=== PATIENT | male | born 1945 | race Caucasian/White ===

== ENCOUNTER 2019-01-09 13:12 | Emergency (ER) | payer OTHER, MEDICARE ==
[2019-01-09 14:00] VITALS: BP 114/46; PULSE 77; TEMP 98.1; BMI 21.9
--- NOTE | 2019-01-09 15:25 | PDOC ---
History of Present Illness - General Chief Complaint: Weakness Stated Complaint: DIZZINESS Time Seen by Provider: 01/09/19 15:24 History Source: Patient Exam Limitations: No Limitations - History of Present Illness Initial Comments: 01/09/19 16:02 74 yo M with a hx of HTN, dementia, TIAs, prostate cancer (2008; s/p radiation) , and GERD presents to the emergency department with AMS per . Per the , he was agitated and more confused last night, refusing to take his medications and acting paranoid. These symptoms persisted today, but have been resolving. Denies head trauma and LOC. Per the patient, he denies the following symptoms: fever, chills, FND, visual changes, ears/nose/throat pain, chest pain , SOB, nausea, vomiting, acute abdominal pain, dysuria, hematuria, diarrhea, hematochezia, and leg pain/swelling. No recent sick contacts. Per the , he was more forgetful and confused to his location. He was seen by Dr. Sneed today who sent him to the ED for evaluation for infectious source. 01/09/19 16:09 01/09/19 16:18 Past History - Past Medical History Allergies/Adverse Reactions: Allergies Allergy/AdvReac Type Severity Reaction Status Date / Time No Known Allergies Allergy Verified 01/09/19 13:56 Home Medications: Ambulatory Orders Amlodipine Besylate 10 mg PO DAILY 01/09/19 Cephalexin Monohydrate [Keflex -] 500 mg PO Q6H #40 capsule 01/09/19 Divalproex *ER* [Depakote *ER* -] 250 mg PO BID 01/09/19 Escitalopram Oxalate [Lexapro -] 10 mg PO DAILY 01/09/19 Gabapentin [Neurontin] 100 mg PO BID 01/09/19 Gabapentin [Neurontin] 200 mg PO HS 01/09/19 Memantine HCl [Namenda -] 5 mg PO HS 01/09/19 Pantoprazole Sodium [Protonix] 40 mg PO DAILY 01/09/19 Sennosides [Senna] 8.6 mg PO BID 01/09/19 Thiamine HCl [Vitamin B1] 100 mg PO DAILY 01/09/19 traZODone HCL [Trazodone HCl] 50 mg PO HS 01/09/19 COPD: No Dementia: Yes HTN: Yes - Suicide/Smoking/Psychosocial Hx Smoking History: Never smoked Hx Alcohol Use: Yes (stopped 3 years ago) Drug/Substance Use Hx: No *Physical Exam - Vital Signs Last Vital Signs Temp Pulse Resp BP Pulse Ox 98.1 F 77 18 114/46 L 99 01/09/19 13:57 01/09/19 13:57 01/09/19 13:57 01/09/19 13:57 01/09/19 13:57 Moderate Sedation - Procedure Monitoring Vital Signs: Procedure Monitoring Vital Signs Temperature 98.1 F 01/09/19 13:57 Pulse Rate 77 01/09/19 13:57 Respiratory Rate 18 01/09/19 13:57 Blood Pressure 114/46 L 01/09/19 13:57 O2 Sat by Pulse Oximetry (%) 99 01/09/19 13:57 ED Treatment Course - LABORATORY CBC & Chemistry Diagram: 01/09/19 17:19 01/09/19 17:19 *DC/Admit/Observation/Transfer Diagnosis at time of Disposition: UTI (urinary tract infection) Qualifiers: Urinary tract infection type: site unspecified Hematuria presence: without hematuria Qualified Code(s): N39.0 - Urinary tract infection, site not specified - Discharge Dispostion Disposition: HOME Decision to Admit order: No - Prescriptions Prescriptions: Cephalexin Monohydrate [Keflex -] 500 mg PO Q6H #40 capsule - Referrals Referrals: Jarod Jimenez MD [Primary Care Provider] - Tamiko Sneed MD [Staff Physician] - - Patient Instructions Printed Discharge Instructions: Urinary Tract Infection Additional Instructions: you were seen in the emergency department for the evaluation of your urinary symptoms. UA shows that you have a UTI. please follow up with your primary medical doctor within 1 week after discharge for follow up care and management and please follow up with dr. sneed within 1 week for follow up care and management. please take the medication as prescribed. please return to the emergency department if you have worsening symptoms or new concerning symptoms such as fever, worsening altered mental status, SOB, and blood in the urine. thank you - Post Discharge Activity
--- NOTE | 2019-01-09 16:58 | PDOC ---
Attending Attestation - Medical Decision Making 01/09/19 16:[address] Sneed, awaiting call back. 01/09/19 16:[address] Sneed, awaiting call back. 01/09/19 17:[address] Sneed. <Lisy Cali - Last Filed: 01/09/19 17:00> - Resident Resident Name: Paul Black - ED Attending Attestation I have performed the following: I have examined & evaluated the patient, The case was reviewed & discussed with the resident, I agree w/resident's findings & plan, Exceptions are as noted - HPI HPI: 01/09/19 17:06 The patient is a 74 year old male, with a significant past medical history of HTN, frontotemporal dementia, TIAs, prostate cancer (2008; s/p radiation), and GERD, who presents to the emergency department for evaluation of altered mental status since last night. The patients states that the patient has seemed more confused and refuses to take his medications. Patient denies all symptoms. Patient was advised to come to the emergency department today by his neurologist Dr. Sneed who he saw earlier today. The patient denies chest pain, shortness of breath, headache and dizziness. Denies fever, chills, nausea, vomit, diarrhea and constipation. Denies dysuria, frequency, urgency and hematuria. Allergies: NKA Social history: None reported PCP: Dr. Jimenez Neurologist: Dr. Sneed - Physicial Exam PE: 01/09/19 17:07 agree with resident exam - Medical Decision Making 01/09/19 16:07 74yo M with MMP presents to the ED for evaluation after episode of confusion last night. Per pt's , pt is now back to baseline. Pt denies all sxs. Per Dr. Sneed, he wanted to r/o UTI or other infection as cause of temporary increased confusion last night. Plan to check labs, UA, and reassess. If w/u unrevealing, plan to broaden work up to possible CTH, further testing. 01/09/19 17:00 Labs, UA, CXR pending Case signed out to oncoming attending for further mgmt/dispo <Vicky Valencia - Last Filed: 01/09/19 21:16> Heart Score/ECG Review #1 01/09/19 17:09 Twelve-lead EKG was performed and reviewed by me. Normal sinus rhythm, rate 66. Left axis deviation. No ST elevations or T-wave inversions. <Vicky Valencia - Last Filed: 01/09/19 21:16> Attestations - Attestations 01/09/19 17:00 Documentation prepared by Lisy Cali, acting as medical staff physician for Vicky Valencia MD. <Lisy Cali - Last Filed: 01/09/19 17:00>
[2019-01-09 17:34] LABS: BASO % 0.8 % (0-2.0); EOS % 0.6 % (0-4.5); HEMATOCRIT 40.4 % (35.4-49); HEMOGLOBIN 14.3 GM/dL (11.7-16.9); LYMPH % 19.9 % (8-40); MCH 31.7 pg (25.7-33.7); MCHC 35.3 g/dl (32.0-35.9); MEAN CELL VOLUME 89.8 fl (80-96); MEAN PLT VOLUME 9.4 fl (7.5-11.1); NEUT % 70.7 % (42.8-82.8); PLATELET COUNT 225 K/MM3 (134-434); RDW 14.4 % (11.9-15.9); WHITE BLOOD COUNT 7.6 K/mm3 (4.0-10.0)
[2019-01-09 17:36] LABS: URINE APPEARANCE CLEAR; URINE BILIRUBIN NEGATIVE (<2.0 mg/dL); URINE COLOR YELLOW; URINE GLUCOSE (UA) NEGATIVE (NEGATIVE); URINE KETONE 1+ (NEGATIVE); URINE LEUK ESTERASE 1+ (NEGATIVE); URINE NITRITE NEGATIVE (NEGATIVE); URINE PROTEIN NEGATIVE (NEGATIVE); URINE UROBILINOGEN NEGATIVE mg/dL (0.2-1.0)
[2019-01-09 17:43] LABS: COCAINE, UR NEGATIVE ng/ml (CUTOFF=300); METHADONE, UR NEGATIVE ng/ml (CUTOFF=300); OPIATES, URI NEGATIVE ng/ml (CUTOFF=300); PHENCYCLIDINE,URINE NEGATIVE ng/ml (CUTOFF=25); URINE AMPHETAMINES NEGATIVE ng/ml (CUTOFF=500); URINE BARBITURATES NEGATIVE ng/ml (CUTOFF=200); URINE BENZODIAZEPINES NEGATIVE ng/ml (CUTOFF=200)
[2019-01-09 18:16] LABS: ALBUMIN 3.5 g/dl (3.4-5.0); ALK PHOS 62 U/L (45-117); ANION GAP 7 MMOL/L (8-16); BILIRUBIN,TOTAL 0.7 mg/dL (0.2-1); BLOOD UREA NITROGEN 23 mg/dL (7-18); CALCIUM 9.2 mg/dL (8.5-10.1); CHLORIDE 103 mmol/L (98-107); CO2 27 mmol/L (21-32); GLUCOSE,RANDOM 76 mg/dL (74-106); POTASSIUM 4.2 mmol/L (3.5-5.1); SGOT/AST 45 U/L (15-37); SGPT/ALT 67 U/L (13-61); SODIUM 136 mmol/L (136-145); TOT PROT 7.3 g/dl (6.4-8.2)
[2019-01-09 18:21] LABS: EPI CELLS RARE /HPF (FEW); URINE MUCUS RARE
[2019-01-09] MEDS ORDERED: CEPHALEXIN MONOHYDRATE 500 MG CAPSULE (UD) ONE (19:04)
[2019-01-09] MEDS ORDERED: CEPHALEXIN MONOHYDRATE 500 MG CAPSULE (UD) PO ONE (19:04)
--- NOTE | 2019-01-10 11:07 | EKG ---
Test Reason : Blood Pressure : / mmHG Vent. Rate : 066 BPM Atrial Rate : 066 BPM P-R Int : 168 ms QRS Dur : 072 ms QT Int : 388 ms P-R-T Axes : 073 -35 058 degrees QTc Int : 406 ms POOR DATA QUALITY, INTERPRETATION MAY BE ADVERSELY AFFECTED NORMAL SINUS RHYTHM LEFT AXIS DEVIATION ABNORMAL ECG NO PREVIOUS ECGS AVAILABLE Confirmed by SOLEDAD WRIGHT, ANA ([id number]) on 01/10/2019 11:07:15 AM Referred By: Confirmed By:ANA ROWE MD
== END 2019-01-09 19:10 | disposition home or self-care (01) ==
LOC: JER 13:12
DX: N39.0 Urinary tract infection, site not specified (principal); I10 Essential (primary) hypertension; F03.90 Unspecified dementia, unspecified severity, without behavioral disturbance, psychotic disturbance, mood disturbance, and anxiety; K21.9 Gastro-esophageal reflux disease without esophagitis; Z86.73 Personal history of transient ischemic attack (TIA), and cerebral infarction without residual deficits; Z85.46 Personal history of malignant neoplasm of prostate
CPT/HCPCS: 36415; 71045-TC-FY; 71046-TC-FY; 80053; 80307; 81003; 81015; 82550; 84484; 85025; 87086; 87186; 93005; 93010; 99282-25

== ENCOUNTER 2019-01-17 13:37 | Inpatient (IN) | payer OTHER, MEDICARE ==
--- NOTE | 2019-01-17 13:43 | PDOC ---
Rapid Medical Evaluation Medical Evaluation: Allergies Allergy/AdvReac Type Severity Reaction Status Date / Time No Known Allergies Allergy Verified 01/09/19 13:56 I have performed a brief in-person evaluation of this patient. The patient presents with a chief complaint of: Per , patient has been getting aggressive and increasingly paranoid today; patient was recently seen last week and dx with UTI; per , was only able to give medication 3 times Pertinent physical exam findings: In NAD I have ordered the following: Labs The patient will proceed to the ED for further evaluation. 01/17/19 13:40
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
[2019-01-17 16:37] LABS: EPI CELLS 0.7 /HPF (FEW); PH,URINE 5.5 (5.0-8.0); URINE APPEARANCE CLEAR; URINE BACTERIA 2.016 /hpf (NEGATIVE); URINE BILIRUBIN NEGATIVE (<2.0 mg/dL); URINE CASTS 4 /hpf (NEGATIVE); URINE COLOR YELLOW; URINE GLUCOSE (UA) NEAGTIVE (NEGATIVE); URINE KETONE TRACE (NEGATIVE); URINE LEUK ESTERASE TRACE (NEGATIVE); URINE NITRITE NEGATIVE (NEGATIVE); URINE PROTEIN NEGATIVE (NEGATIVE); URINE RBC 3 /hpf (0-3); URINE UROBILINOGEN 0.2 mg/dL (0.2-1.0); URINE WBC 4 /hpf (3-5)
--- NOTE | 2019-01-17 16:49 | CON.PSY ---
Psychiatry Consult Chief Complaint: 74 year old Male brought to Er by for UTI and aggressive Behaviour. patient has been seeing DR.Kazmi Hilliard and Rivera Keene. Has Dementia with Behavioral [id number]. has been on [id number], Risperidal, Neurintin ETC. Symptoms: reports: Memory Impairment, Irritability, Aggressivity - Previous Psychiatric Treatment Outpatient: Less than 6 mos ago Inpatient: None - Allergies Allergies: Allergies Allergy/AdvReac Type Severity Reaction Status Date / Time No Known Allergies Allergy Verified 01/17/19 13:45 - Current Living Status Usual Living Arrangement: With Spouse - Current Mental Status Evaluation Appearance: Disheveled Attitude: Belligerent - Affect Affect: Constrictive Appropriateness: Not Appropriate - Mood Mood: Irritable - Speech/Language Expressive: Delayed - Psychomotor Activity Psychomotor Activity: Hyperactive - Thought Process Thought Process: Circumstantial - Thought Content Hallucinations: Absent Delusions: Absent - Self Perception Self Perception: Depersonalization - Cognition Attention: Diminished Memory, Immediate Recall: Impaired Memory, Short Term: 1/3 Memory, Remote with Promptin/3 - Concentration Serial Sevens Intact: No Simple Calculations Intact: No - Abstraction Proverb Interpretation: Impaired Judgement: Moderately Impaired - Insight Insight: Impaired - Impulse Control Impulse Control: Moderately Impaired - Suicidal Ideation Suicidal Ideation: No - Homicidal Ideation Homicidal Ideation: No Assessment/Plan 1) Suggest Zyprexa 5mg po bid for aggression.
[2019-01-17] MEDS ORDERED: OLANZapine 5 MG TABLET PO ONE (16:51)
[2019-01-17] MEDS ORDERED: OLANZapine 7.5 MG TABLET PO ONE ×2 (16:52→17:08)
[2019-01-17 17:02] LABS: COCAINE, UR NEGATIVE ng/ml (CUTOFF=300); METHADONE, UR NEGATIVE ng/ml (CUTOFF=300); OPIATES, URI NEGATIVE ng/ml (CUTOFF=300); PHENCYCLIDINE,URINE NEGATIVE ng/ml (CUTOFF=25); URINE AMPHETAMINES NEGATIVE ng/ml (CUTOFF=500); URINE BARBITURATES NEGATIVE ng/ml (CUTOFF=200); URINE BENZODIAZEPINES NEGATIVE ng/ml (CUTOFF=200)
[2019-01-17 17:34] LABS: BASO % 0.8 % (0-2.0); EOS % 2.2 % (0-4.5); HEMATOCRIT 39.5 % (35.4-49); LYMPH % 14.6 % (8-40); MCH 31.5 pg (25.7-33.7); MCHC 35.4 g/dl (32.0-35.9); MEAN CELL VOLUME 89.1 fl (80-96); MEAN PLT VOLUME 8.8 fl (7.5-11.1); MONO % 9.1 % (3.8-10.2); NEUT % 73.3 % (42.8-82.8); PLATELET COUNT 181 K/MM3 (134-434); RBC 4.44 M/mm3 (4.00-5.60); RDW 14.1 % (11.9-15.9); WHITE BLOOD COUNT 7.6 K/mm3 (4.0-10.0)
[2019-01-17 18:04] LABS: ALBUMIN 3.8 g/dl (3.4-5.0); ALK PHOS 63 U/L (45-117); ANION GAP 6 MMOL/L (8-16); BILIRUBIN,TOTAL 0.4 mg/dL (0.2-1); BLOOD UREA NITROGEN 25 mg/dL (7-18); CHLORIDE 103 mmol/L (98-107); CO2 28 mmol/L (21-32); GLUCOSE,RANDOM 78 mg/dL (74-106); POTASSIUM 4.2 mmol/L (3.5-5.1); SGOT/AST 35 U/L (15-37); SGPT/ALT 65 U/L (13-61); SODIUM 137 mmol/L (136-145); TOT PROT 7.2 g/dl (6.4-8.2)
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
[2019-01-17] MEDS ORDERED: AMOXICILLIN 875 MG TABLET PO SCH (22:00)
[2019-01-17] MEDS ORDERED: AMOX TR/POT CLAV 875MG/125MG TABLETS (FP) ONE (23:12)
[2019-01-17] MEDS: AMOX TR/POT CLAV 875MG/125MG TABLETS (FP) PO SCH (23:12)
[2019-01-18] MEDS ORDERED: HALOPERIDOL LACTATE 5 MG/ML IM ONE ×2 (05:48→05:54)
[2019-01-18] MEDS ORDERED: LORazepam 2 MG/ML SDV VIAL ONE (05:48)
[2019-01-18] MEDS ORDERED: HEPARIN NA (PORCINE) 5,000 UNITS/ML 1ML VIAL SQ SCH (06:00)
[2019-01-18] MEDS ORDERED: PT OWN MED DRAWER 7, Y5N ONE (08:55)
[2019-01-18] MEDS: DIVALPROEX NA *ER* EXTEND REL 250 MG TABLET.SA PO SCH ×2 (08:59→21:33)
[2019-01-18] MEDS: SENNOSIDES 8.6MG TABLET (FP) PO SCH ×2 (08:59→21:33)
[2019-01-18] MEDS: THIAMINE HCL 100 MG TABLET (FP) PO SCH (08:59)
[2019-01-18] MEDS: GABAPENTIN 100 MG CAPSULE (FP) PO SCH ×3 (08:59→21:34)
[2019-01-18] MEDS: PANTOPRAZOLE 40 MG TABLET (FP) PO SCH (08:59)
[2019-01-18] MEDS: ESCITALOPRAM OXALATE 10 MG TABLET (FP) PO SCH (08:59)
[2019-01-18] MEDS: AMOX TR/POT CLAV 875MG/125MG TABLETS (FP) PO SCH ×2 (08:59→18:05)
[2019-01-18] MEDS: amLODIPine BESYLATE 10 MG TABLET (FP) PO SCH (08:59)
[2019-01-18] MEDS: ENOXAPARIN NA (PORCINE) 40 MG/0.4 ML DISP.SYRIN SQ SCH (09:06)
--- NOTE | 2019-01-18 10:59 | EKG ---
Test Reason : Blood Pressure : / mmHG Vent. Rate : 063 BPM Atrial Rate : 063 BPM P-R Int : 178 ms QRS Dur : 080 ms QT Int : 400 ms P-R-T Axes : 071 -10 059 degrees QTc Int : 409 ms NORMAL SINUS RHYTHM NORMAL ECG WHEN COMPARED WITH ECG OF 09-JAN-2019 16:43, NO SIGNIFICANT CHANGE WAS FOUND Confirmed by DERRICK GUPTA MD ([id number]) on 01/18/2019 10:59:17 AM Referred By: Confirmed By:DERRICK GUPTA MD
[2019-01-18 12:22] LABS: HEMATOCRIT 39.4 % (35.4-49); HEMOGLOBIN 13.6 GM/dL (11.7-16.9); MCH 30.7 pg (25.7-33.7); MCHC 34.5 g/dl (32.0-35.9); MEAN CELL VOLUME 89.1 fl (80-96); MEAN PLT VOLUME 9.3 fl (7.5-11.1); PLATELET COUNT 167 K/MM3 (134-434); RBC 4.43 M/mm3 (4.00-5.60); RDW 14.2 % (11.9-15.9); WHITE BLOOD COUNT 5.1 K/mm3 (4.0-10.0)
[2019-01-18 13:55] LABS: ALBUMIN 3.6 g/dl (3.4-5.0); ALK PHOS 62 U/L (45-117); ANION GAP 7 MMOL/L (8-16); BILIRUBIN,TOTAL 0.4 mg/dL (0.2-1); BLOOD UREA NITROGEN 17 mg/dL (7-18); CHLORIDE 104 mmol/L (98-107); CO2 28 mmol/L (21-32); CREATININE 0.9 mg/dL (0.55-1.3); GLUCOSE,RANDOM 82 mg/dL (74-106); MAGNESIUM 2.2 mg/dL (1.8-2.4); PHOSPHOROUS 3.4 mg/dL (2.5-4.9); POTASSIUM 3.6 mmol/L (3.5-5.1); SGOT/AST 37 U/L (15-37); SGPT/ALT 68 U/L (13-61); SODIUM 140 mmol/L (136-145)
[2019-01-18 14:18] LABS: ERYTHROCYTE SEDIMENTATION RATE 7 mm/hr (0-20)
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
[2019-01-18 16:40] LABS: INR 1.08 (0.83-1.09); PROTHROMBIN TIME (PATIENT) 12.8 SEC (9.7-13.0)
[2019-01-18] MEDS: traZODone HCL 50 MG TABLET (FP) PO SCH (21:33)
[2019-01-18] MEDS ORDERED: OLANZapine 5 MG TABLET PO SCH (22:00)
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
[2019-01-19] MEDS ORDERED: PT OWN MED DRAWER 7, Y5N ONE (10:50)
[2019-01-19] MEDS: ESCITALOPRAM OXALATE 10 MG TABLET (FP) PO SCH (11:00)
[2019-01-19] MEDS: OLANZapine 5 MG TABLET PO SCH ×2 (11:00→23:24)
[2019-01-19] MEDS: amLODIPine BESYLATE 10 MG TABLET (FP) PO SCH (11:00)
[2019-01-19] MEDS: GABAPENTIN 100 MG CAPSULE (FP) PO SCH ×3 (11:00→23:18)
[2019-01-19] MEDS: SENNOSIDES 8.6MG TABLET (FP) PO SCH ×2 (11:00→23:18)
[2019-01-19] MEDS: AMOX TR/POT CLAV 875MG/125MG TABLETS (FP) PO SCH ×2 (11:00→17:54)
[2019-01-19] MEDS: ENOXAPARIN NA (PORCINE) 40 MG/0.4 ML DISP.SYRIN SQ SCH (11:00)
[2019-01-19] MEDS: PANTOPRAZOLE 40 MG TABLET (FP) PO SCH (11:00)
[2019-01-19] MEDS: THIAMINE HCL 100 MG TABLET (FP) PO SCH (11:00)
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
[2019-01-19] MEDS: DIVALPROEX NA *ER* EXTEND REL 250 MG TABLET.SA PO SCH ×2 (13:28→23:24)
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
[2019-01-19] MEDS ORDERED: MEMANTINE HCL 5 MG TABLET (UD) PO SCH (22:00)
[2019-01-19] MEDS: traZODone HCL 50 MG TABLET (FP) PO SCH (23:24)
[2019-01-20] MEDS ORDERED: HALOPERIDOL LACTATE 5 MG/ML IM ONE (06:28)
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
--- NOTE | 2019-01-20 11:48 | CON.PSY ---
Psychiatry Consult Chief Complaint: Asked to see Alex Arthur this am for aggressive behavior and psychiatric meds review. History of Present Problem: Patient is a 74 year old male with a known diagnosis of frontal-temporal dementia who was brought to the Er by his for agressive behaviorand/UTI/ Patient was seen by Dr. Trinh and Zyprexa 5 mgs po bid was recently added to his regimen.Today, is the third day of meds. As per reports, he had an episode of increased agitation last nightand received 5 mgs IM of Haldol. This am, met with both , and Mr. Johnson. He is calm and quiet which maybe from the effects of haldol. has a list of his medications and according to that list Depakote was given 500mgs po bid. Symptoms: reports: Depressed Mood (irriability memory problems, aggression. Quiet now after Haldol and 2 days of Zyprexa) - Current Medications Current Medications: Active Medications Amlodipine Besylate (Norvasc -) 10 mg PO DAILY [facility] Last Admin: 01/19/19 11:00 Dose: 10 mg Divalproex Sodium (Depakote *Er* -) 250 mg PO BID [facility] Last Admin: 01/19/19 23:24 Dose: 250 mg Enoxaparin Sodium (Lovenox -) 40 mg SQ DAILY [facility] Last Admin: 01/19/19 11:00 Dose: Not Given Escitalopram Oxalate (Lexapro -) 10 mg PO DAILY [facility] Last Admin: 01/19/19 11:00 Dose: 10 mg Gabapentin (Neurontin -) 100 mg PO BID [facility] Last Admin: 01/19/19 23:18 Dose: Not Given Gabapentin (Neurontin -) 200 mg PO HS [facility] Last Admin: 01/19/19 23:18 Dose: Not Given Haloperidol (Haldol Injection (Fast Acting) -) 5 mg IM Q4H PRN PRN Reason: AGITATION Olanzapine (Zyprexa -) 5 mg PO BID [facility] Last Admin: 01/19/19 23:24 Dose: 5 mg Pantoprazole Sodium (Protonix -) 40 mg PO DAILY [facility] Last Admin: 01/19/19 11:00 Dose: 40 mg Senna (Senna -) 1 tab PO BID [facility] Last Admin: 01/19/19 23:18 Dose: Not Given Thiamine HCl (Vitamin B1 -) 100 mg PO DAILY [facility] Last Admin: 01/19/19 11:00 Dose: 100 mg Trazodone HCl (Desyrel -) 50 mg PO [facility] Last Admin: 01/19/19 23:24 Dose: 50 mg - Allergies Allergies: Allergies Allergy/AdvReac Type Severity Reaction Status Date / Time No Known Allergies Allergy Verified 01/17/19 13:45 - Current Living Status Usual Living Arrangement: Other (temporarily staying at his sister's home in [place]. is seeking NH placement) - Affect Affect: Flat - Mood Mood: Other (neutral, quiet ) - Speech/Language Expressive: Delayed Receptive: Age Appropriate Comprehension of Spoken Words - Psychomotor Activity Psychomotor Activity: Slowed - Thought Process Thought Process: Circumstantial, Loosening of Associations, [place] - Thought Content Hallucinations: Absent Delusions: Absent - Cognition Attention: Diminished Orientation: Person Memory, Immediate Recall: Impaired Memory, Short Term: 0/3 - Concentration Serial Sevens Intact: No Simple Calculations Intact: No - Abstraction Proverb Interpretation: Impaired Judgement: Severely Impaired - Insight Insight: Impaired - Impulse Control Impulse Control: Moderately Impaired - Suicidal Ideation Suicidal Ideation: No - Homicidal Ideation Homicidal Ideation: No Assessment/Plan Patient with Dementia and has been aggressive and agitated lately. is interested in NH placement Rec Increase Zyprexa to 7.5 mgs po bid Continue all other psych meds for now. Consider NH placment if behavior improves with Zyprexa over the weekend
[2019-01-20] MEDS: DIVALPROEX NA *ER* EXTEND REL 250 MG TABLET.SA PO SCH ×2 (12:21→21:25)
[2019-01-20] MEDS: GABAPENTIN 100 MG CAPSULE (FP) PO SCH ×3 (12:21→21:26)
[2019-01-20] MEDS: OLANZapine 5 MG TABLET PO SCH (12:22)
[2019-01-20] MEDS: amLODIPine BESYLATE 10 MG TABLET (FP) PO SCH (12:22)
[2019-01-20] MEDS: ESCITALOPRAM OXALATE 10 MG TABLET (FP) PO SCH (12:22)
[2019-01-20] MEDS: SENNOSIDES 8.6MG TABLET (FP) PO SCH ×2 (16:00→21:26)
[2019-01-20] MEDS: PANTOPRAZOLE 40 MG TABLET (FP) PO SCH (16:00)
[2019-01-20] MEDS: ENOXAPARIN NA (PORCINE) 40 MG/0.4 ML DISP.SYRIN SQ SCH (16:00)
[2019-01-20] MEDS: THIAMINE HCL 100 MG TABLET (FP) PO SCH (16:00)
--- NOTE | 2019-01-20 17:07 | EKG ---
Test Reason : Blood Pressure : / mmHG Vent. Rate : 076 BPM Atrial Rate : 076 BPM P-R Int : 196 ms QRS Dur : 082 ms QT Int : 370 ms P-R-T Axes : 080 -32 053 degrees QTc Int : 416 ms NORMAL SINUS RHYTHM LEFT AXIS DEVIATION ABNORMAL ECG WHEN COMPARED WITH ECG OF 17-JAN-2019 17:41, NO SIGNIFICANT CHANGE WAS FOUND Confirmed by KATHY MOREIRA MD ([id number]) on 01/20/2019 5:07:19 PM Referred By: CHAY LEIGH Confirmed By:KATHY MOREIRA MD
--- NOTE | 2019-01-20 19:43 | PN ---
Progress Note (short form) - Note Progress Note: Psychiatry input greatly appreciated. Mr. Platt appears calmer, is less disinhibited, his judgement remains impaired. Agree with psychiatry that he may need NH placement, i have recommended this to pts.family upon their last visit to my office. Cont. current management.
[2019-01-20] MEDS ORDERED: OLANZapine 2.5 MG TABLET ONE (21:17)
[2019-01-20] MEDS ORDERED: OLANZapine 5 MG TABLET ONE (21:17)
[2019-01-20] MEDS: OLANZAPINE 2.5 MG, OLANZAPINE 5 MG PO SCH (21:26)
[2019-01-20] MEDS: traZODone HCL 50 MG TABLET (FP) PO SCH (21:26)
[2019-01-20] MEDS ORDERED: OLANZapine 7.5 MG TABLET PO SCH (22:00)
[2019-01-20] MEDS: HALOPERIDOL LACTATE 5 MG/ML IM PRN (22:09)
[2019-01-21] MEDS: HALOPERIDOL LACTATE 5 MG/ML IM PRN ×2 (04:24→10:14)
[2019-01-21] MEDS ORDERED: OLANZapine 2.5 MG TABLET ONE (10:11)
[2019-01-21] MEDS ORDERED: OLANZapine 5 MG TABLET ONE (10:11)
[2019-01-21] MEDS: OLANZAPINE 2.5 MG, OLANZAPINE 5 MG PO SCH ×2 (10:13→22:55)
[2019-01-21] MEDS: DIVALPROEX NA *ER* EXTEND REL 250 MG TABLET.SA PO SCH ×2 (10:14→22:55)
[2019-01-21] MEDS: amLODIPine BESYLATE 10 MG TABLET (FP) PO SCH (10:14)
[2019-01-21] MEDS: ESCITALOPRAM OXALATE 10 MG TABLET (FP) PO SCH (10:14)
[2019-01-21] MEDS: ENOXAPARIN NA (PORCINE) 40 MG/0.4 ML DISP.SYRIN SQ SCH (10:14)
[2019-01-21] MEDS: THIAMINE HCL 100 MG TABLET (FP) PO SCH (10:15)
[2019-01-21] MEDS: SENNOSIDES 8.6MG TABLET (FP) PO SCH ×3 (10:15→22:55)
[2019-01-21] MEDS: PANTOPRAZOLE 40 MG TABLET (FP) PO SCH (10:15)
[2019-01-21] MEDS: GABAPENTIN 100 MG CAPSULE (FP) PO SCH ×3 (10:15→22:55)
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
[2019-01-21] MEDS: traZODone HCL 50 MG TABLET (FP) PO SCH (22:55)
[2019-01-22] MEDS ORDERED: OLANZapine 2.5 MG TABLET ONE (10:06)
[2019-01-22] MEDS ORDERED: OLANZapine 5 MG TABLET ONE (10:06)
[2019-01-22] MEDS ORDERED: PT OWN MED DRAWER 7, Y5N ONE (10:08)
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
[2019-01-22] MEDS: ESCITALOPRAM OXALATE 10 MG TABLET (FP) PO SCH ×2 (12:28→13:20)
[2019-01-22] MEDS: ENOXAPARIN NA (PORCINE) 40 MG/0.4 ML DISP.SYRIN SQ SCH (12:28)
[2019-01-22] MEDS: PANTOPRAZOLE 40 MG TABLET (FP) PO SCH ×2 (12:28→13:20)
[2019-01-22] MEDS: amLODIPine BESYLATE 10 MG TABLET (FP) PO SCH ×2 (12:28→13:21)
[2019-01-22] MEDS: GABAPENTIN 100 MG CAPSULE (FP) PO SCH ×4 (12:28→21:28)
[2019-01-22] MEDS: DIVALPROEX NA *ER* EXTEND REL 250 MG TABLET.SA PO SCH (12:28)
[2019-01-22] MEDS: OLANZAPINE 2.5 MG, OLANZAPINE 5 MG PO SCH ×2 (12:29→13:20)
[2019-01-22] MEDS: SENNOSIDES 8.6MG TABLET (FP) PO SCH ×2 (12:29→21:28)
[2019-01-22] MEDS: THIAMINE HCL 100 MG TABLET (FP) PO SCH ×2 (12:29→13:20)
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
[2019-01-23] MEDS ORDERED: HALOPERIDOL DECANOATE 100 MG/ML IM ONE (10:05)
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
[2019-01-23] MEDS ORDERED: PT OWN MED DRAWER 7, Y5N ONE (12:51)
[2019-01-23] MEDS: THIAMINE HCL 100 MG TABLET (FP) PO SCH (13:04)
[2019-01-23] MEDS: OLANZapine 10 MG TABLET PO SCH (13:05)
[2019-01-23] MEDS: amLODIPine BESYLATE 10 MG TABLET (FP) PO SCH (13:05)
[2019-01-23] MEDS: SENNOSIDES 8.6MG TABLET (FP) PO SCH ×2 (13:05→22:15)
[2019-01-23] MEDS: PANTOPRAZOLE 40 MG TABLET (FP) PO SCH (13:05)
[2019-01-23] MEDS: GABAPENTIN 100 MG CAPSULE (FP) PO SCH ×3 (13:05→22:15)
[2019-01-23] MEDS: ENOXAPARIN NA (PORCINE) 40 MG/0.4 ML DISP.SYRIN SQ SCH (13:10)
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
[2019-01-24] MEDS ORDERED: PT OWN MED DRAWER 7, Y5N ONE (11:59)
[2019-01-24] MEDS: GABAPENTIN 100 MG CAPSULE (FP) PO SCH ×3 (12:01→23:18)
[2019-01-24] MEDS: SENNOSIDES 8.6MG TABLET (FP) PO SCH ×2 (12:01→23:18)
[2019-01-24] MEDS: OLANZapine 10 MG TABLET PO SCH (12:01)
[2019-01-24] MEDS: PANTOPRAZOLE 40 MG TABLET (FP) PO SCH (12:01)
[2019-01-24] MEDS: amLODIPine BESYLATE 10 MG TABLET (FP) PO SCH (12:01)
[2019-01-24] MEDS: THIAMINE HCL 100 MG TABLET (FP) PO SCH (12:01)
[2019-01-24] MEDS: HALOPERIDOL LACTATE 5 MG/ML IM PRN ×2 (12:02→16:54)
[2019-01-24] MEDS: ENOXAPARIN NA (PORCINE) 40 MG/0.4 ML DISP.SYRIN SQ SCH (12:02)
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
[2019-01-25] MEDS: HALOPERIDOL LACTATE 5 MG/ML IM PRN ×2 (02:31→09:28)
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
[2019-01-25] MEDS ORDERED: PT OWN MED DRAWER 7, Y5N ONE (09:04)
[2019-01-25] MEDS: SENNOSIDES 8.6MG TABLET (FP) PO SCH ×3 (09:16→22:58)
[2019-01-25] MEDS: THIAMINE HCL 100 MG TABLET (FP) PO SCH (09:16)
[2019-01-25] MEDS: ENOXAPARIN NA (PORCINE) 40 MG/0.4 ML DISP.SYRIN SQ SCH (09:16)
[2019-01-25] MEDS: GABAPENTIN 100 MG CAPSULE (FP) PO SCH ×5 (09:16→22:58)
[2019-01-25] MEDS: OLANZapine 10 MG TABLET PO SCH (09:16)
[2019-01-25] MEDS: PANTOPRAZOLE 40 MG TABLET (FP) PO SCH (09:16)
[2019-01-25] MEDS: amLODIPine BESYLATE 10 MG TABLET (FP) PO SCH (09:32)
--- NOTE | 2019-01-25 09:46 | PN ---
Progress Note (short form) - Note Progress Note: Patient seen for Psych follow up and progress. Case discussed with Nurse Pulmonologist Intensivist , reports indicate that medication may be helping patient to be less aggressive. He still tends to wander into other peoples rooms and become aggressive. Patient however has not engaged in any self damaging or suicidal behaviour since his admission. Dementia and agitation persists. PLAN: 1) 1:1 can be discontinued. 2) Continue with current Psych meds. 3) ? transfer to [facility] for further stabilization..
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
[2019-01-26] MEDS ORDERED: PT OWN MED DRAWER 7, Y5N ONE (09:07)
[2019-01-26] MEDS: GABAPENTIN 100 MG CAPSULE (FP) PO SCH ×3 (09:14→23:12)
[2019-01-26] MEDS: PANTOPRAZOLE 40 MG TABLET (FP) PO SCH (09:14)
[2019-01-26] MEDS: amLODIPine BESYLATE 10 MG TABLET (FP) PO SCH (09:14)
[2019-01-26] MEDS: SENNOSIDES 8.6MG TABLET (FP) PO SCH ×2 (09:14→23:12)
[2019-01-26] MEDS: THIAMINE HCL 100 MG TABLET (FP) PO SCH (09:14)
[2019-01-26] MEDS: OLANZapine 10 MG TABLET PO SCH (09:14)
[2019-01-26] MEDS: ENOXAPARIN NA (PORCINE) 40 MG/0.4 ML DISP.SYRIN SQ SCH (09:15)
[2019-01-26] MEDS ORDERED: ACETAMINOPHEN 500 MG TABLET (FP) PO PRN (17:00)
[2019-01-26 19:19] LABS: BASO % 0.3 % (0-2.0); EOS % 0.1 % (0-4.5); HEMOGLOBIN 13.2 GM/dL (11.7-16.9); LYMPH % 7.1 % (8-40); MCH 30.3 pg (25.7-33.7); MCHC 33.7 g/dl (32.0-35.9); MEAN CELL VOLUME 89.9 fl (80-96); MEAN PLT VOLUME 9.7 fl (7.5-11.1); MONO % 6.2 % (3.8-10.2); NEUT % 86.3 % (42.8-82.8); PLATELET COUNT 168 K/MM3 (134-434); RBC 4.34 M/mm3 (4.00-5.60); RDW 14.5 % (11.9-15.9); WHITE BLOOD COUNT 11.1 K/mm3 (4.0-10.0)
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
[2019-01-26 19:54] LABS: ALBUMIN 3.6 g/dl (3.4-5.0); ALK PHOS 68 U/L (45-117); ANION GAP 9 MMOL/L (8-16); BILIRUBIN,TOTAL 0.4 mg/dL (0.2-1); BLOOD UREA NITROGEN 24 mg/dL (7-18); CALCIUM 8.8 mg/dL (8.5-10.1); CHLORIDE 101 mmol/L (98-107); CO2 28 mmol/L (21-32); CREATININE 1.1 mg/dL (0.55-1.3); GLUCOSE,RANDOM 108 mg/dL (74-106); MAGNESIUM 2.2 mg/dL (1.8-2.4); POTASSIUM 3.8 mmol/L (3.5-5.1); SGOT/AST 21 U/L (15-37); SGPT/ALT 42 U/L (13-61); SODIUM 138 mmol/L (136-145)
[2019-01-26] MEDS ORDERED: traZODone HCL 50 MG TABLET (FP) PO ONE (22:00)
--- NOTE | 2019-01-26 23:05 | PN ---
Progress Note (short form) - Note Progress Note: CONSULT ALREADY CONPLETE BY DR JIMENEZ. CALLED BY VLAD Peters SHE REQUEST HIM TO HAVE PO PRN FOR SLEEP. APPARTENTLY DOES NOT LIKE HALDOL, DUE TO DAYS FOLLOWING DROWSINESS. CLIENT ON ZYPREXIA 20MG IN AM, IS IT POSSIBLE TO MOVE 1/2 DOSE TO HELP SLEEP AT NIGHT? STAT TRAZADONE 50 MG FOR SLEEP. APPARENTLY RN HAD PREPARED MEDS HE IS ALREADY SLEEPING SOUNDLY.
[2019-01-27] MEDS ORDERED: NAPH,MB-DB/K PH,MBDB POWDER PACKET PO ONE ×3 (07:08→17:00)
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
[2019-01-27] MEDS ORDERED: PT OWN MED DRAWER 7, Y5N ONE (10:36)
[2019-01-27] MEDS: SENNOSIDES 8.6MG TABLET (FP) PO SCH ×2 (11:36→21:14)
[2019-01-27] MEDS: ENOXAPARIN NA (PORCINE) 40 MG/0.4 ML DISP.SYRIN SQ SCH (11:36)
[2019-01-27] MEDS: GABAPENTIN 100 MG CAPSULE (FP) PO SCH ×3 (11:36→21:14)
[2019-01-27] MEDS: amLODIPine BESYLATE 10 MG TABLET (FP) PO SCH (11:36)
[2019-01-27] MEDS: PANTOPRAZOLE 40 MG TABLET (FP) PO SCH (11:36)
[2019-01-27] MEDS: OLANZapine 10 MG TABLET PO SCH (11:52)
[2019-01-27] MEDS: THIAMINE HCL 100 MG TABLET (FP) PO SCH (11:53)
--- NOTE | 2019-01-27 15:17 | PN ---
Progress Note (short form) - Note Progress Note: Psych follow up; Met with Patients to discuss treatment and future plans. She reports that patient had hallucinations on Haldol Inj but, staff reported hallucinations even before Haldol was administered. Seems to be doing a little better but still exhibiting episodic aggressive behaviour. [facility] has been called few days ago. reports patient still is Paranoid, afraid that would leave him in the Hospital. There appears to be some [id number] in patients Mental Satus and behaviour in the last two days. He has been sleeping a lot and able to eat with 's assistance. MS: patient has been sleeping all day. Plan: Continue with Zyprexa and Trazadone. @) will adriana Nielsen on Tuesday to discuss possible transfer to [facility].
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
[2019-01-28 08:51] LABS: BASO % 0.7 % (0-2.0); EOS % 3.6 % (0-4.5); HEMATOCRIT 38.9 % (35.4-49); HEMOGLOBIN 13.2 GM/dL (11.7-16.9); LYMPH % 16.5 % (8-40); MCH 30.5 pg (25.7-33.7); MEAN CELL VOLUME 89.8 fl (80-96); MEAN PLT VOLUME 9.5 fl (7.5-11.1); MONO % 9.7 % (3.8-10.2); NEUT % 69.5 % (42.8-82.8); PLATELET COUNT 158 K/MM3 (134-434); RBC 4.34 M/mm3 (4.00-5.60); RDW 14.6 % (11.9-15.9); WHITE BLOOD COUNT 6.9 K/mm3 (4.0-10.0)
[2019-01-28 09:17] LABS: ANION GAP 6 MMOL/L (8-16); BLOOD UREA NITROGEN 13 mg/dL (7-18); CALCIUM 8.7 mg/dL (8.5-10.1); CHLORIDE 104 mmol/L (98-107); CO2 29 mmol/L (21-32); CREATININE 0.7 mg/dL (0.55-1.3); GLUCOSE,RANDOM 87 mg/dL (74-106); MAGNESIUM 2.4 mg/dL (1.8-2.4); PHOSPHOROUS 3.1 mg/dL (2.5-4.9); POTASSIUM 3.8 mmol/L (3.5-5.1); SODIUM 138 mmol/L (136-145)
[2019-01-28] MEDS ORDERED: PT OWN MED DRAWER 7, Y5N ONE (09:39)
[2019-01-28] MEDS: GABAPENTIN 100 MG CAPSULE (FP) PO SCH ×3 (09:48→21:32)
[2019-01-28] MEDS: SENNOSIDES 8.6MG TABLET (FP) PO SCH ×2 (09:48→21:32)
[2019-01-28] MEDS: PANTOPRAZOLE 40 MG TABLET (FP) PO SCH (09:48)
[2019-01-28] MEDS: OLANZapine 10 MG TABLET PO SCH (09:48)
[2019-01-28] MEDS: ENOXAPARIN NA (PORCINE) 40 MG/0.4 ML DISP.SYRIN SQ SCH (09:49)
[2019-01-28] MEDS: THIAMINE HCL 100 MG TABLET (FP) PO SCH (09:49)
[2019-01-28] MEDS: amLODIPine BESYLATE 10 MG TABLET (FP) PO SCH (09:49)
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
[2019-01-29] MEDS ORDERED: PT OWN MED DRAWER 7, Y5N ONE ×2 (09:12→10:09)
[2019-01-29] MEDS: amLODIPine BESYLATE 10 MG TABLET (FP) PO SCH (10:04)
[2019-01-29] MEDS: PANTOPRAZOLE 40 MG TABLET (FP) PO SCH (10:04)
[2019-01-29] MEDS: SENNOSIDES 8.6MG TABLET (FP) PO SCH ×2 (10:04→21:45)
[2019-01-29] MEDS: GABAPENTIN 100 MG CAPSULE (FP) PO SCH ×3 (10:05→21:45)
[2019-01-29] MEDS: ENOXAPARIN NA (PORCINE) 40 MG/0.4 ML DISP.SYRIN SQ SCH (10:05)
[2019-01-29] MEDS: THIAMINE HCL 100 MG TABLET (FP) PO SCH (10:06)
[2019-01-29] MEDS: OLANZapine 10 MG TABLET PO SCH (10:21)
--- NOTE | 2019-01-29 10:55 | EKG ---
Test Reason : Blood Pressure : / mmHG Vent. Rate : 083 BPM Atrial Rate : 083 BPM P-R Int : 176 ms QRS Dur : 074 ms QT Int : 352 ms P-R-T Axes : 071 -21 065 degrees QTc Int : 413 ms SINUS RHYTHM WITH OCCASIONAL PREMATURE VENTRICULAR COMPLEXES NONSPECIFIC T WAVE ABNORMALITY ABNORMAL ECG WHEN COMPARED WITH ECG OF 19-JAN-2019 13:10, PREMATURE VENTRICULAR COMPLEXES ARE NOW PRESENT Confirmed by FLORENCIO WRIGHT, DENISA ([id number]) on 01/29/2019 10:55:21 AM Referred By: Confirmed By:DENISA MATIAS MD
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
--- NOTE | 2019-01-29 18:23 | PN ---
Progress Note (short form) - Note Progress Note: Psych follow up: Patient seen, case discussed with . Swallowing eaval done and patient has been aspirating solid foods. Still ambulating and reports there is nothing wrong with him . Reconizes his and still displays acute agitation at staff. No EPS seen from Haldol Decanoate and Zyprexa. PLan: 1) continue with Zyprexa 20mg po od. 2) Spoke to [facility].. They will not take a patient with Fronto -Temporal Dementia with aggressive behaviour. 3) [facility] Psych unit apparantly is closed. $) Patient has developed Swallowing issues and Palliative COnsult is Pending. 5) Continue with 1:1.
[2019-01-30] MEDS ORDERED: PT OWN MED DRAWER 7, Y5N ONE (11:00)
[2019-01-30] MEDS: OLANZapine 10 MG TABLET PO SCH (11:14)
[2019-01-30] MEDS: ENOXAPARIN NA (PORCINE) 40 MG/0.4 ML DISP.SYRIN SQ SCH (11:14)
[2019-01-30] MEDS: GABAPENTIN 100 MG CAPSULE (FP) PO SCH ×3 (11:15→21:37)
[2019-01-30] MEDS: PANTOPRAZOLE 40 MG TABLET (FP) PO SCH (11:15)
[2019-01-30] MEDS: THIAMINE HCL 100 MG TABLET (FP) PO SCH (11:15)
[2019-01-30] MEDS: SENNOSIDES 8.6MG TABLET (FP) PO SCH ×2 (11:15→21:36)
[2019-01-30] MEDS: amLODIPine BESYLATE 10 MG TABLET (FP) PO SCH (11:15)
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
--- NOTE | 2019-01-30 12:26 | PN ---
Progress Note, SOLAR ENGINEER - Note Progress Note: Staff aware of results of MBS and silent aspiration. Pt's has chosen to feed him and is aware of aspiration risk. Pt is a full code, pending Palliative care consult. Educated pt's on small bites, feed slowly,chin tuck down, swallow hard a couple of times per bite, encourage pt to cough to clear airway, mouth care before and after meals. Monitor PO tolerance, fever, congestion,WBC.
--- NOTE | 2019-01-30 12:28 | PN ---
Progress Note, ECOLOGY PROFESSOR - Note Progress Note: Handout for Mrs. Platt Pureed food/[place] thick liquids small bites feed slowly chin tuck down swallow hard a couple of times per bite encourage pt to cough to clear airway mouth care before and after meals
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
[2019-01-31] MEDS: GABAPENTIN 100 MG CAPSULE (FP) PO SCH ×5 (01:00→21:59)
[2019-01-31] MEDS: SENNOSIDES 8.6MG TABLET (FP) PO SCH ×3 (01:06→21:59)
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
[2019-01-31] MEDS ORDERED: PT OWN MED DRAWER 7, Y5N ONE (08:45)
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
[2019-01-31] MEDS: OLANZapine 10 MG TABLET PO SCH (10:03)
[2019-01-31] MEDS: PANTOPRAZOLE 40 MG TABLET (FP) PO SCH (10:03)
[2019-01-31] MEDS: ENOXAPARIN NA (PORCINE) 40 MG/0.4 ML DISP.SYRIN SQ SCH (10:04)
[2019-01-31] MEDS: amLODIPine BESYLATE 10 MG TABLET (FP) PO SCH (10:04)
[2019-01-31] MEDS: THIAMINE HCL 100 MG TABLET (FP) PO SCH (10:05)
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
--- NOTE | 2019-02-01 10:37 | PN ---
Progress Note, OPTICAL FABRICATOR - Note Progress Note: Selected Entries 01/31/19 01/31/19 01/31/19 06:00 09:00 10:28 Breakfast 50% Lunch Temperature 98.2 F 98.2 F 01/31/19 01/31/19 02/01/19 13:40 14:17 06:00 Breakfast Lunch 50% Temperature 97.1 F L 97.8 F Staff aware of results of MBS and silent aspiration. Pt's has chosen to feed him and is aware of aspiration risk. Pt is a full code, pending Palliative care consult. Compensatory swallowing strategies used with good affect including small bites, feed slowly,chin tuck down, swallow hard a couple of times per bite, encourage pt to cough to clear airway, mouth care before and after meals. Monitor PO tolerance. Pending d/c Repeat MBS in future as out pt for possible diet upgrade.
[2019-02-01] MEDS: amLODIPine BESYLATE 10 MG TABLET (FP) PO SCH (11:07)
[2019-02-01] MEDS: ENOXAPARIN NA (PORCINE) 40 MG/0.4 ML DISP.SYRIN SQ SCH (11:07)
[2019-02-01] MEDS: PANTOPRAZOLE 40 MG TABLET (FP) PO SCH (11:08)
[2019-02-01] MEDS: OLANZapine 10 MG TABLET PO SCH (11:08)
[2019-02-01] MEDS: SENNOSIDES 8.6MG TABLET (FP) PO SCH (11:08)
[2019-02-01] MEDS: GABAPENTIN 100 MG CAPSULE (FP) PO SCH (11:09)
[2019-02-01] MEDS: THIAMINE HCL 100 MG TABLET (FP) PO SCH (11:09)
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
[2019-02-01 12:46] VITALS: BMI 20.3
[2019-02-01 13:49] VITALS: BP 146/70; PULSE 67; TEMP 97.4
== END 2019-02-01 13:37 | DRG 57 ==
LOC: JER 13:37 → JERBED 19:05 → OBSVTOIN 21:00 → J5S 01-18 05:55
PROVIDERS: ADMIT Internal Medicine; ATTEND Internal Medicine
DX: G31.09 Other frontotemporal neurocognitive disorder (principal); N39.0 Urinary tract infection, site not specified; F02.81 Dementia in other diseases classified elsewhere, unspecified severity, with behavioral disturbance; I10 Essential (primary) hypertension; F91.8 Other conduct disorders; K21.9 Gastro-esophageal reflux disease without esophagitis; Z91.5 Personal history of self-harm; R13.10 Dysphagia, unspecified; Z86.73 Personal history of transient ischemic attack (TIA), and cerebral infarction without residual deficits; Z85.46 Personal history of malignant neoplasm of prostate; F41.9 Anxiety disorder, unspecified; F90.9 Attention-deficit hyperactivity disorder, unspecified type; Z91.14 Patient's other noncompliance with medication regimen; E83.39 Other disorders of phosphorus metabolism; R50.9 Fever, unspecified
CPT/HCPCS: 36415; 71045-TC-FY; 74230-TC-FY; 80048; 80053; 80307; 81003; 81015; 82607; 82746; 83735; 84100; 84443; 85025; 85027; 85610; 85651; 86593; 87040; 87086; 87389; 87804; 92611-GN; 93005; 93010; 97116-GP; 97161-GP; 99283-25; G0378

== ENCOUNTER 2019-07-09 11:24 | Emergency (ER) | payer OTHER, MEDICARE ==
[2019-07-09 11:30] VITALS: TEMP 98.5; BMI 18.1
--- NOTE | 2019-07-09 12:51 | PDOC ---
History of Present Illness - General Chief Complaint: G Tube Problem Stated Complaint: REPLACEMENT FEEDING TUBE Time Seen by Provider: 07/09/19 12:22 History Source: Family () - History of Present Illness Initial Comments: 07/09/19 12:24 74 y/o/m with extensive past medical history here because he pulled out his G- tube today at 1038. As per his she was giving him his feed but it spilled, the patient became agitated and pulled out his tube. The tube is normally covered by a dressing so the patient cannot take it out but the dressing was removed so the patient could get his feed. G-tube was put in by Dr. Abdias Bell at [facility]. is unsure what size the G-tube is and is unable to get information but her [id number] went to patients house to get his g-tube. denies any other changes in patient's behavior. PMHx: HTN, frontotemporal dementia, TIA, prostate cancer in remission, GERD, Basal cell carcinoma treat with excision twice SHx: Back surgery, tonsillectomy Social: denies any drug use PCP: Dr. Shea Bee Past History - Past Medical History Allergies/Adverse Reactions: Allergies Allergy/AdvReac Type Severity Reaction Status Date / Time No Known Allergies Allergy Verified 01/17/19 13:45 Home Medications: Ambulatory Orders Amlodipine Besylate 10 mg PO DAILY 01/09/19 Gabapentin [Neurontin] 100 mg PO BID 01/09/19 Gabapentin [Neurontin] 200 mg PO HS 01/09/19 Pantoprazole Sodium [Protonix] 40 mg PO DAILY 01/09/19 Sennosides [Senna] 8.6 mg PO BID 01/09/19 Thiamine HCl [Vitamin B1 -] 100 mg PO DAILY 01/09/19 traZODone HCL [Trazodone HCl] 50 mg PO HS 01/09/19 Olanzapine [ZyPREXA -] 20 mg PO DAILY tablet 01/30/19 COPD: No Dementia: Yes GI Disorders: Yes (acid reflux, umbilical hernia) HTN: Yes Psychiatric Problems: Yes (Dementia, anxiety) - Suicide/Smoking/Psychosocial Hx Smoking History: Smoker current status UNK Have you smoked in the past 12 months: No Information on smoking cessation initiated: No Hx Alcohol Use: No Drug/Substance Use Hx: No Review of Systems - Review of Systems Able to Perform ROS?: No (patient has dementia) *Physical Exam - Vital Signs Last Vital Signs Temp Pulse Resp BP Pulse Ox 98.5 F 55 L 18 123/47 L 99 07/09/19 11:27 07/09/19 11:27 07/09/19 11:27 07/09/19 11:07/09/19 11:27 - Physical Exam General Appearance: Yes: Disheveled, Thin HEENT: positive: EOMI, Pale Conjunctivae Neck: positive: Trachea midline, Supple Respiratory/Chest: positive: Normal Breath Sounds. negative: Accessory Muscle Use, Crackles, Rales, Wheezing Cardiovascular: positive: Regular Rhythm, Regular Rate, S1, S2 Gastrointestinal/Abdominal: positive: Normal Bowel Sounds, Other (G-tube incision present with mild amount of blood and minimal surrounding erythema, no warmth). negative: Tender Extremity: positive: Normal Capillary Refill Integumentary: positive: Dry Medical Decision Making - Medical Decision Making 07/09/19 13:17 74 y/o/m with extensive past medical history here because he pulled out his G- tube today at 1038. As per his she was giving him his feed but it spilled, the patient became agitated and pulled out his tube. [id number] returned with 20 niuean g-tube. attempted to replace without success. Attempted a second 20 niuean inflatable balloon g-tube again without success. 07/09/19 13:34 Attempted putting in a 16 niuean g-tube again without success as there is a lot of resistance. Spoke with radiology, Dr. Carlos, will be able to put patient on schedule for g -tube replacement today. 07/09/19 14:31 Patient taken down to IR for replacement of G-tube 07/09/19 16:23 Patient returned from IR. 16 niuean g-tube inserted. Patient complaining of mild pain, given 650mg of Tylenol. Patient will be discharged home. *DC/Admit/Observation/Transfer Diagnosis at time of Disposition: Dislodged gastrostomy tube - Discharge Dispostion Disposition: HOME Condition at time of disposition: Good - Referrals Referrals: Shea Bee [Primary Care Provider] - - Patient Instructions Additional Instructions: If you start have pain at the site of the feeding tube, notice redness, swelling , warmth, or pus at the site of the feeding tube contact your PCP or return to the ER. Please follow up with your primary care doctor in the next week. A 16 niuean feeding tube was placed in the hospital today. This is a smaller feeding tube than what you initially had. Please follow up with your surgeon regarding the feeding tube. - Post Discharge Activity
[2019-07-09] MEDS ORDERED: morphine CARPU-JECT 2 MG/1 ML DISP.SYRIN IM ONE (13:09)
[2019-07-09] MEDS ORDERED: MORPHINE SULFATE 2 MG/ML VIAL ONE (13:11)
--- NOTE | 2019-07-09 14:12 | PDOC ---
Attending Attestation - Resident Resident Name: IrmaDevon S - ED Attending Attestation I have performed the following: I have examined & evaluated the patient, The case was reviewed & discussed with the resident, I agree w/resident's findings & plan, Exceptions are as noted - HPI HPI: 07/09/19 14:05 Reviewed Residents HPI - Physicial Exam PE: 07/09/19 14:05 Reviewed Residents PE - Medical Decision Making 07/09/19 14:05 Pt. Pulled his G tube out. 3 attempts made unsuccessfully to replace tube. IR consulted for replacement. 07/10/19 16:52 Reevaluation: G-tube replaced by IR patient stable for discharge Findings, need for follow-up and strict return instructions discussed.
[2019-07-09 14:33] VITALS: BP 123/78; PULSE 88
[2019-07-09] MEDS ORDERED: ACETAMINOPHEN 325 MG TABLET (FP) PO PRN (16:19)
[2019-07-09] MEDS ORDERED: ACETAMINOPHEN 325 MG TABLET (FP) ONE (16:42)
== END 2019-07-09 17:28 | disposition home or self-care (01) ==
LOC: JER 11:24
PROC: 0D20XUZ Change Feeding Device in Upper Intestinal Tract, External Approach (ICD-10-PCS; principal; 2019-07-09)
PROC: 3E023NZ Introduction of Analgesics, Hypnotics, Sedatives into Muscle, Percutaneous Approach (ICD-10-PCS; 2019-07-09)
DX: Z43.1 Encounter for attention to gastrostomy (principal); I10 Essential (primary) hypertension; F41.9 Anxiety disorder, unspecified; F03.90 Unspecified dementia, unspecified severity, without behavioral disturbance, psychotic disturbance, mood disturbance, and anxiety; K21.9 Gastro-esophageal reflux disease without esophagitis
CPT/HCPCS: 49450; 99282-25